=== PATIENT | male | born 1975 ===

== ENCOUNTER 2024-12-19 09:58 | Inpatient (IN) | payer OTHER ==
[~2024-12-19] VITALS: Ht 172.7 cm; Wt 102.5 kg
[2024-12-19] MEDS ORDERED: CLONAZEPAM0.25 MG PO (10:49)
[2024-12-19] MEDS ORDERED: NORVASC5 MG PO (10:49)
[2024-12-19] MEDS ORDERED: LOSARTAN POTAS100 MG PO (10:49)
[2024-12-19 10:50] VITALS: BP 140/89
[2024-12-19 11:12] LABS: HEMOGLOBIN 13.5 g/dL (13-16.00); MEAN CELL VOLUME 95.9 fL (80.0-100.00); MEAN CORPUSCULAR HEMOGLOBIN 32.4 pg (27.00-32.0); MEAN CORPUSCULAR HGB CONC 33.8 g/dl (32.0-36.0); PLATELET COUNT 388 K/uL (150-450); RED BLOOD COUNT 4.17 M/uL (4.00-6.00); RED CELL DISTRIBUTION WIDTH 14.9 % (11.5-14.5)
[2024-12-19 12:03] LABS: INR 0.94; PARTIAL THROMBOPLASTIN TIME 26.8 SECONDS (22.0-34.0); PROTHROMBIN TIME 10.3 SECONDS (9.0-11.5)
[2024-12-19 12:13] LABS: RH POSITIVE
[2024-12-28] MEDS ORDERED: SURGIFLO APPLICATOR 1 EACH APPL TOP ONE (08:51)
[2024-12-28] MEDS ORDERED: HEMOSTATIC MATRIX 1 KIT KIT TOP ONE (08:51)
[2024-12-28] MEDS ORDERED: CEFAZOLIN SODIUM 1,000 MG in 0.9 % SODIUM CHLORIDE 50 ML IV ONE (09:30)
[2024-12-28] MEDS ORDERED: ENOXAPARIN SODIUM 40 MG/0.4 ML SYRINGE SUBCUTANEO ONE (09:30)
[2024-12-28] MEDS ORDERED: SUGAMMADEX SODIUM 200 MG/2 ML VIAL IV ONE (11:44)
[2024-12-28] MEDS ORDERED: RINGERS SOLUTION,LACTATED 1,000 ML IV SCH (12:00)
[2024-12-28] MEDS ORDERED: CLONAZEPAM 0.5 MG TABLET PO PRN (12:00)
[2024-12-28] MEDS ORDERED: CEFAZOLIN SODIUM 1,000 MG VIAL IV SCH (12:00)
[2024-12-28] MEDS ORDERED: OxyCODONE HCL/APAP UD (PERCOCET) PO PRN (12:00)
[2024-12-28] MEDS ORDERED: ONDANSETRON HCL 2 MG/ML VIAL IV PRN (12:00)
[2024-12-28] MEDS ORDERED: MORPHINE SULFATE 4 MG/ML CARTRIDGE IV PRN (12:00)
[2024-12-28] MEDS ORDERED: MORPHINE SULFATE 4 MG/ML VIAL IV ONE ×2 (12:40→13:40)
[2024-12-28] MEDS ORDERED: CEFAZOLIN SODIUM 1,000 MG VIAL ONE (13:23)
[2024-12-28] MEDS ORDERED: GABAPENTIN 300 MG CAPSULE PO SCH (17:00)
[2024-12-28] MEDS ORDERED: POLYETHYLENE GLYCOL 3350 17 GM BLIST.PACK PO SCH (17:00)
[2024-12-28 18:34] VITALS: BP 157/88; O2SAT 99
[2024-12-28] MEDS ORDERED: FAMOTIDINE/PF 20 MG/2 ML VIAL IV SCH (21:00)
[2024-12-29] VITALS: BP 120/70; O2SAT 96
[2024-12-29 06:57] LABS: HEMATOCRIT 39.6 % (39.0-48.0); HEMOGLOBIN 13.5 g/dL (13-16.00); MEAN CELL VOLUME 96.3 fL (80.0-100.00); MEAN CORPUSCULAR HEMOGLOBIN 32.8 pg (27.00-32.0); MEAN CORPUSCULAR HGB CONC 34.1 g/dl (32.0-36.0); PLATELET COUNT 375 K/uL (150-450); RED BLOOD COUNT 4.11 M/uL (4.00-6.00); RED CELL DISTRIBUTION WIDTH 14.5 % (11.5-14.5)
[2024-12-29 07:43] LABS: ALBUMIN 3.3 gm/dL (3.4-5.0); CREATININE SERUM 1.13 mg/dL (0.70-1.30); GFR 69.26; PHOSPHOROUS 3.7 mg/dL (2.5-4.9); POTASSIUM 5.03 mEq/L (3.5-5.1)
[2024-12-29 08:12] VITALS: BP 131/83; O2SAT 97
[2024-12-29] MEDS ORDERED: LOSARTAN POTASSIUM 100 MG TABLET PO SCH (09:00)
[2024-12-29] MEDS ORDERED: AMLODIPINE BESYLATE 5 MG TABLET PO SCH (09:00)
[2024-12-29] MEDS ORDERED: ENOXAPARIN SODIUM 40 MG/0.4 ML SYRINGE SUBCUTANEO SCH (09:00)
== END 2024-12-29 09:54 | disposition home or self-care (01) | DRG 708 ==
LOC: O/R 12-28 05:31 → SURH 12-28 07:00 → O/R 12-28 08:54 → SURH 12-28 10:45
PROVIDERS: ADMIT Urology; ATTEND Urology
PROC: 8E0W4CZ Robotic Assisted Procedure of Trunk Region, Percutaneous Endoscopic Approach (ICD-10-PCS; 2024-12-28)
PROC: 0VT04ZZ Resection of Prostate, Percutaneous Endoscopic Approach (ICD-10-PCS; principal; 2024-12-28 07:00)
DX: C61 Malignant neoplasm of prostate (principal)
CPT/HCPCS: 55866; S2900